=== PATIENT | female | born 1985 | race Hispanic/Latino ===

== ENCOUNTER 2018-09-02 23:43 | Emergency (ER) | payer OTHER ==
[2018-09-02 23:44] VITALS: BMI 33.3
[2018-09-02 23:54] VITALS: RESP 16; O2SAT 98
[2018-09-03 00:56] LABS: BASO # 0.1 K/uL (0.0-0.2); BASO % 1.2 % (0.0-2.0); EOS # 0.1 K/uL (0.0-0.7); EOS % 1.3 % (0.0-4.0); LYMPH # 2.6 K/uL (1.0-4.3); LYMPH % 40.6 % (20.0-40.0); MEAN CELL VOLUME 92.1 fl (81.0-99.0); MEAN CORPUSCULAR HEMOGLOBIN 30.7 pg (27.0-31.0); MEAN CORPUSCULAR HGB CONC 33.4 g/dL (33.0-37.0); MEAN PLATELET VOLUME 8.3 fl (7.2-11.7); MONO # 0.9 K/uL (0.0-0.8); MONO % 13.6 % (0.0-10.0); NEUT # 2.8 K/uL (1.8-7.0); NEUT % 43.3 % (50.0-75.0); RBC 4.24 Mil/uL (3.80-5.20); RED CELL DISTRIBUTION WIDTH 12.7 % (11.5-14.5); WHITE BLOOD COUNT 6.5 K/uL (4.8-10.8)
[2018-09-03 00:58] LABS: SQUAMOUS EPITHIAL 2 /hpf (0-5); URINE BACTERIA RARE (<OCC); URINE BILIRUBIN NEGATIVE (NEGATIVE); URINE BLOOD SMALL (NEGATIVE); URINE CLARITY CLEAR (Clear); URINE COLOR STRAW (YELLOW); URINE GLUCOSE (UA) NEG (Normal); URINE LEUKOCYTE ESTERASE TRACE Leu/uL (Negative); URINE PROTEIN NEGATIVE (NEGATIVE); URINE UROBILINOGEN 0.2-1.0 mg/dL (0.2-1.0)
[2018-09-03 01:03] LABS: ALB/GLOB RATIO 1.5 (1.0-2.1); ALBUMIN 4.5 g/dL (3.5-5.0); ALT/SGPT 30 U/L (9-52); AST/SGOT 26 U/L (14-36); BLOOD UREA NITROGEN 19 mg/dl (7-17); CALCIUM 9.5 mg/dL (8.4-10.2); GFR NON-AFRICAN AMERICAN > 60; LIPASE 110 U/L (23-300)
--- NOTE | 2018-09-03 01:08 | ED PDOC ---
HPI: Abdomen Time Seen by Provider: 09/03/18 00:00 Chief Complaint (Nursing): Abdominal Pain Chief Complaint (Provider): Abdominal Pain History Per: Patient History/Exam Limitations: no limitations Onset/Duration Of Symptoms: Worse Since (tonight), Other (months) Location Of Pain/Discomfort: RUQ, Epigastric. denies: RLQ Associated Symptoms: Diarrhea. denies: Fever, Urinary Symptoms Additional Complaint(s): 33 years old female with history of GERD and diaphragmatic hernia presents to ER for evaluation of mid epigastric and right upper quadrant abdominal pain since February. Patient reports she follows up with a [facility] where she had workup and a negative gallbladder US results, but she believes something is still wrong w her gallbladder. She reports pain comes in wave, worsening tonight with episode of diarrhea.Patient is requesting hida scan tonight. She states pain will come again some time and denies any fever or vomiting, dysuria or hematuria PMD: Gastro Dr Rondon [facility] Past Medical History Reviewed: Historical Data, Nursing Documentation, Vital Signs Vital Signs: Last Vital Signs Temp 98.0 F 09/02/18 23:48 Pulse 80 09/02/18 23:48 Resp 16 09/02/18 23:48 BP 115/59 L 09/02/18 23:48 Pulse Ox 98 09/02/18 23:48 - Medical History PMH: No Chronic Diseases, Colonic Polyps, Gastritis (EOSINOPHILIC), GERD Denies: Chronic Kidney Disease Other PMH: diaphragmatic hernia - Surgical History Surgical History: Appendectomy, Endoscopy (3 WEEKS AGO), Tonsillectomy - Family History Family History: States: Unknown Family Hx - Social History Current smoker - smoking cessation education provided: No Alcohol: Social Drugs: Denies - Home Medications Home Medications: Ambulatory Orders Medication Instructions Recorded L.acidoph,Paracasei, B.lactis 1 cap PO DAILY 06/05/16 [Probiotic] Pantoprazole Sodium [Protonix] 2 cap PO DAILY 06/05/16 Fluticasone Propionate [Flovent 2 puff INH DAILY 08/21/16 Hfa] - Allergies Allergies/Adverse Reactions: Allergies Allergy/AdvReac Type Severity Reaction Status Date / Time Penicillins Allergy Intermediate RASH Verified 08/21/16 08:52 Sulfa (Sulfonamide Allergy Intermediate ITCHING Verified 08/21/16 08:52 Antibiotics) Review of Systems ROS Statement: Except As Marked, All Systems Reviewed And Found Negative Constitutional: Negative for: Fever Gastrointestinal: Positive for: Abdominal Pain (mid epigastric and RUQ), Diarrhea Genitourinary Female: Negative for: Dysuria, Hematuria Physical Exam - Reviewed Nursing Documentation Reviewed: Yes - Physical Exam Appears: Positive for: Non-toxic, No Acute Distress Head Exam: Positive for: ATRAUMATIC, NORMOCEPHALIC Skin: Positive for: Normal Color, Warm, Dry Eye Exam: Positive for: Normal appearance ENT: Positive for: Normal ENT Inspection Neck: Positive for: Normal Cardiovascular/Chest: Positive for: Regular Rate, Rhythm. Negative for: Murmur Respiratory: Positive for: Normal Breath Sounds. Negative for: Wheezing Gastrointestinal/Abdominal: Positive for: Normal Exam, Bowel Sounds, Soft. Negative for: Tenderness, Organomegaly, Distended, Guarding, Rebound, Hernia, Asicites Back: Positive for: R CVA Tenderness. Negative for: L CVA Tenderness Extremity: Positive for: Normal ROM. Negative for: Tenderness, Swelling Neurologic/Psych: Positive for: Alert, Oriented (x3) - Laboratory Results Result Diagrams: 09/03/18 00:51 09/03/18 00:51 - ECG O2 Sat by Pulse Oximetry: 98 (RA) Pulse Ox Interpretation: Normal Medical Decision Making Medical Decision Making: Time: 0023 Initial Plan: abdominal pain rule out gallbladder disease --Labs --Pepcid 20 mg IVP --Protonix 40 mg IVP --Gallbladder US pt feels better, tolerated po. discussed findings below. Apparently her GI scheduled her HIDDA as outpatient. pt instructed to follow up w her gI for further workup. she has meds at home for gastritis. she appears comfortable and in no distress. stable for dc. 0221 Gallbladder US Findings: The liver is moderately enlarged measuring 20 cm. Diffuse increase in hepatic echogenicity suggestive of fatty infiltration/hepatic steatosis. Unremarkable gallbladder. Normal gallbladder thickness measuring 3 mm. No evidence of cholelithiasis. Negative sonographic Glaser. Nondilated common bile duct measuring 4 mm. Unremarkable pancreas. Unremarkable aorta. Unremarkable right kidney measuring 11.7x3.9x3.5 cm. Impression: Hepatomegaly. Hepatic steatosis. Scribe Attestation: Documented by Christianne Rucker, acting as a scribe for Toscano MD. Provider Scribe Attestation: All medical record entries made by the Scribe were at my direction and personally dictated by me. I have reviewed the chart and agree that the record accurately reflects my personal performance of the history, physical exam, medical decision making, and the department course for this patient. I have also personally directed, reviewed, and agree with the discharge instructions and disposition. Disposition - Clinical Impression Clinical Impression: Abdominal pain, Hypokalemia - Patient ED Disposition Is Patient to be Admitted: No Counseled Patient/Family Regarding: Studies Performed, Diagnosis, Need For Followup - Disposition Disposition: Routine/Home Disposition Time: 03:00 Condition: IMPROVED Additional Instructions: follow up with your GI doctor at [facility] in 1-2 days return to the ED with any worsening or concerning symptoms Instructions: Stomach Ache and Stomach Upset Forms: [employer] ([place])
[2018-09-03] MEDS ORDERED: Potassium Chloride 20 mEq ER Tab PO ONE ×2 (02:44→03:01)
[2018-09-03 03:10] VITALS: BP 101/69; PULSE 86; TEMP 98.2
--- NOTE | 2018-09-03 11:49 | US ---
Date of service: 09/03/2018 HISTORY: upper abd pain COMPARISON: None. TECHNIQUE: Grayscale imaging was performed. FINDINGS: LIVER: Measures 20.0 cm in length. There is diffuse increased echogenicity of the liver parenchyma. No mass. No intrahepatic bile duct dilatation. GALLBLADDER: The gallbladder is partially contracted like related to nonfasting status. There are no gallstones, wall thickening or pericholecystic fluid. The sonographic Glaser's sign is negative. COMMON BILE DUCT: Measures 4.0 mm. No stones. No dilatation. PANCREAS: Unremarkable as visualized. No mass. No ductal dilatation. RIGHT KIDNEY: Measures 11.7 cm in length. Normal echogenicity. No calculus, mass, or hydronephrosis. AORTA: No aneurysmal dilatation. IVC: Unremarkable. OTHER FINDINGS: None . IMPRESSION: Moderate hepatomegaly. Diffuse increased echogenicity in the liver may reflect hepatic steatosis however parenchymal infectious/ inflammatory etiologies cannot be entirely excluded. Clinical and laboratory correlation is advised. No cholelithiasis or biliary dilatation. A preliminary report was provided by [employer]
== END 2018-09-03 03:10 | disposition home or self-care (01) ==
LOC: H.ER 23:43
DX: R16.0 Hepatomegaly, not elsewhere classified (principal); K76.0 Fatty (change of) liver, not elsewhere classified; Z88.0 Allergy status to penicillin
CPT/HCPCS: 76705; 80053; 81003; 81025; 83690; 85025; 87086; 96374; 96375; 99284; C9113